=== PATIENT | male | born 1970 | race Caucasian/White ===

== ENCOUNTER 2022-10-20 13:52 | Emergency (ER) | payer OTHER, SELFPAY ==
--- NOTE | ~2022-10-20 | XR_ITS ---
Clinical Indication: Cough PA and lateral views of the chest: Comparison: None Findings: The lungs are clear, without evidence of focal consolidation or pleural effusion. Cardiome diastinal silhouette is within normal limits. Bones and soft tissues are unremarkable. Impression: Normal chest. Reviewed, dictated and finalized at [facility]. [employer] Impression: Normal chest.
[2022-10-20 14:02] VITALS: BP 150/92; PULSE 87; RESP 16; TEMP 35.7; O2SAT 100
--- NOTE | 2022-10-20 14:28 | ED.URI ---
HPI - URI/Sore Throat General Chief Complaint: Upper Respiratory Infection Stated Complaint: Cough Time Seen by Provider: 10/20/22 14:29 Source: patient, RN notes reviewed and old records reviewed Mode of arrival: ambulatory Limitations: no limitations History of Present Illness HPI Narrative: 52 year old male who presents to [facility] care with complaints of cough for one week duration and had fever of 100.5F last evening. Patient denies any fever this morning. Patient reports that he has had some body aches and dizziness, reports that he has had prior walking pneumonia and is concerned of possible repeat illness. patient reports that he has had COVID vaccinations no Booster and has not had flu shot. Patient reports that he has not had any ear pain or any sinus drainage. Patient states that cough is not allowing him to sleep well at night. Patient reports that he has been taking Ibuprofen and Delsym. MD elicited complaint: cough and sore throat Onset (ago): week(s) (1) Able to tolerate fluids by mouth: Yes Treatments prior to arrival: ibuprofen and other (delsym) Related Data Allergies Allergy/AdvReac Type Severity Reaction Status Date / Time No Known Allergies Allergy Verified 10/21/22 09:27 Review of Systems Review of Systems: CONSTITUTIONAL: reports malaise, chills, sweats, or fever. EYES: Denies visual changes, redness, or discharge. ENT: Reports rhinorrhea, congestion, sinus pain, no otalgia positive for sore throat. CARDIOVASCULAR: Denies chest pain, palpitations, or edema. RESPIRATORY: Reports persistent dry cough.? Denies dyspnea. GASTROINTESTINAL: Denies abdominal pain, nausea, vomiting, diarrhea SKIN: Denies rash or itching. MUSCULOSKELETAL: reports myalgia. NEUROLOGIC: Denies headache. All systems reviewed & are unremarkable except as noted in HPI and below PMFSH Past Medical History Medical History Kidney stone Social History Social History (Updated 10/26/22 @ 09:55 by Shruti Hollins NP) Gender identity (if verbalized by the patient): Male Comments At time of signature, agree with nursing past medical, surgical, social and family history. There is no relevant family history pertinent to the presenting complaint Exam Narrative: GENERAL: Well-appearing, well-nourished, and in no acute distress. HEAD: Normocephalic EYES: PERRLA, conjunctivae clear ENT: Nares clear, turbinates edematous and erythematous, clear discharge. Mucous membranes moist. TM pearly marin with dull light reflex bilaterally; no tragal tenderness. Oropharynx erythematous without lesions. Tonsils not enlarged and without exudate, no drooling, no hoarseness, no trismus, uvula midline. NECK: Supple. No lymphadenopathy CHEST: Clear to auscultation, breath sounds equal. No wheezing, rhonchi, rales, or stridor. No respiratory distress, speaks in full sentences.dry cough noted, SAO2 100% on room air HEART: Regular rate and rhythm. No murmur heard. SKIN: Warm, dry, no rash. NEURO: Alert and oriented x3. PSYCH: Normal mood and affect Course Course Emergency Course: Patient is aware of diagnosis, understands and agrees to treatment plan.? Anticipatory guidance given.? Patient agrees to follow-up as directed and is aware of reasons to seek care at the emergency department. Portions of this record may have been created with voice recognition software Level of Care: Express Care Visit Vital Signs Vital signs: Vital Signs Temperature 35.7 C L 10/20/22 14:02 Pulse Rate 87 10/20/22 14:02 Respiratory Rate 16 10/20/22 14:02 Blood Pressure 150/92 H 10/20/22 14:02 Pulse Oximetry 100 10/20/22 14:02 Oxygen Delivery Room Air 10/20/22 14:02 Temperature 35.7 C L 10/20/22 14:02 Pulse Rate 87 10/20/22 14:02 Respiratory Rate 16 10/20/22 14:02 Blood Pressure 150/92 H 10/20/22 14:02 Pulse Oximetry 100 10/20/22 14:02 Oxygen Delivery
== END 2022-10-20 14:57 | disposition home or self-care (01) ==
PROVIDERS: Emergency Provider Registered Nurse; PCP Family Medicine
DX: R05.9 Cough, unspecified (principal); J06.9 Acute upper respiratory infection, unspecified
CPT/HCPCS: 71046; 99203; G0463